=== PATIENT | female | born 1980 | race Caucasian/White ===

== ENCOUNTER → 2016-08-22 | Outpatient (CLI) | payer OTHER ==
[~2016-08-22] MED LIST: IBUP-103 PO; LEVO25TA5 PO; MTR600X PO
[2016-08-22 15:51] LABS: URINE APPEARANCE CLEAR (CLEAR); URINE BILIRUBIN NEG (NEG); URINE COLOR YELLOW; URINE NITRITE NEG (NEG); URINE SPECIFIC GRAVITY 1.006 (1.000-1.030); UROBILINOGEN NEG (NEG)
[2016-08-22 15:55] LABS: MANUAL MICROSCOPIC REQUIRED? NO; REVIEW REQ? NO
== END | disposition home or self-care (01) ==
LOC: C.LABSPEC 12:57
PROVIDERS: ATTEND Obstetrics & Gynecology
DX: O09.00 Supervision of pregnancy with history of infertility, unspecified trimester (principal)

== ENCOUNTER → 2016-08-28 | Outpatient (CLI) | payer OTHER | END | disposition home or self-care (01) | LOC: C.LAB1850 15:40 | PROVIDERS: ATTEND Obstetrics & Gynecology | DX: O03.9 Complete or unspecified spontaneous abortion without complication (principal) ==

== ENCOUNTER → 2016-09-05 | Outpatient (CLI) | payer OTHER ==
[2016-09-05 13:19] LABS: BASO % 0.2 %; BASO ABS # 0.02 K/uL (0-0.2); COMPLETE YES; EOS % 0.9 %; HEMATOCRIT 36.5 % (37-47); IG% 0.2 %; LYMPH % 23.8 %; LYMPH ABS # 2.97 K/uL (1.2-3.4); MEAN CELL VOLUME 88.6 fL (80-100); MEAN CORPUSCULAR HGB CONC 36.2 g/dl (32-36); MEAN PLATELET VOLUME 10.1 fL (7.4-10.4); MONO % 5.4 %; NEUT % 69.5 %; PLATELET COUNT 301 K/uL (130-400); RED BLOOD COUNT 4.12 M/uL (4.2-5.4); WHITE BLOOD COUNT 12.48 K/uL (4.8-10.8)
== END | disposition home or self-care (01) ==
LOC: C.LAB1850 11:54
PROVIDERS: ATTEND Obstetrics & Gynecology
DX: O03.9 Complete or unspecified spontaneous abortion without complication (principal)

== ENCOUNTER → 2016-09-10 | Day surgery (SDC) | payer OTHER ==
--- NOTE | 2016-09-05 14:38 | HISTORY & PHYSICAL EXAMINATION ---
DATE OF ADMISSION: 09/10/2016 ADMITTING DIAGNOSIS: Missed . ADMISSION HISTORY OF PRESENT ILLNESS: The patient is a 35-year-old 3, para 0 at 9 weeks gestational age who is admitted for a suction D\T\E for missed AB. The patient was seen in the office on 28 August for a new OB visit. At that time, the ultrasound showed an intrauterine with marked bradycardia and minimal growth since previous ultrasound. Ultrasound was repeated a week later which showed an intrauterine with no cardiac activity consistent with a missed AB. Treatment options were discussed with the patient and she has opted for the D\T\E. PAST MEDICAL HISTORY: OBSTETRICAL: As above. EAP CLINICIAN: SIB x3. MEDICAL HISTORY: Abnormal Pap smears. SURGICAL: Tonsillectomy and wisdom teeth extraction. ALLERGIES: OXYCODONE. SOCIAL HISTORY: No smoking. FAMILY HISTORY: Noncontributory. REVIEW OF SYSTEMS: As per HPI. PHYSICAL EXAMINATION: GENERAL: Shows a pleasant female in no acute distress. VITAL SIGNS: Blood pressure 102/74, weight of 120 pounds. HEENT: Unremarkable. NECK: Supple. LUNGS: Clear. HEART: With a regular rhythm and rate. ABDOMEN: Soft, nontender. PELVIC: Shows normal external genitalia. The vaginal vault is pink and rugated. The cervical os is nulliparous and closed. There is no cervical dilatation. Bimanual examination shows an anterior mobile uterus of 6-8 weeks size. The adnexa show no palpable masses. RECTAL: Confirmatory. EXTREMITIES: Shows no deep calf tenderness. NEUROLOGIC: Grossly intact. IMPRESSION: A 35-year-old 3, para 0, 9 weeks gestational age with missed . PLAN: Risks, benefits and alternatives to the surgery have been discussed. While the benefits will be removal of the gestational tissue and possible chromosomal analysis, the risks are bleeding, infection, inadvertent perforation of the uterus or failure to removal of gestational tissue. We have also discussed the alternative of Cytotec induction which the patient declines. The permit has been signed and she wishes to proceed.
[2016-09-07 08:02] VITALS: Ht 160 cm; Wt 54.5 kg
[~2016-09-10] VITALS: Ht 160 cm; Wt 54.5 kg
[~2016-09-10] MED LIST changes: +ATROPINE SULFATE 0.1 MG/ML 5ML SYR IV PRN; +DEXAMETHASONE SOD INJ 4 MG/ML VIAL IV PRN; +DEXAMETHASONE SOD INJ 4 MG/ML VIAL ONE; +DOXYCYCLINE HYCLATE 100 MG CAP PO SCH; +EpHEDrine SULFATE INJ 50 MG/ML AMP IV PRN; +FENTANYL CITRATE INJ 50 MCG/1 ML 2 ML VIAL IV PRN; +FENTANYL CITRATE INJ 50 MCG/1 ML 2 ML VIAL ONE; -IBUP-103 PO; +IBUPROFEN 600 MG TAB PO PRN; +KETOROLAC TROMETHAMINE 30 MG/ML VIAL IV. PRN; +KETOROLAC TROMETHAMINE 30 MG/ML VIAL ONE; +LABETALOL HCL IV 5 MG/ML 20ML IV PRN; +LACTATED RINGER'S 1000ML 1,000 ML IV SCH; +LIDOCAINE HCL 2% 2 ML VIAL (20MG/ML) ONE; +METOCLOPRAMIDE HCL INJ 5 MG/ML 2 ML VIAL IV PRN; +MIDAZOLAM HCL 1 MG/ML 2ML VIAL ONE; +MoRPHine SULFATE 10 MG/ML CARP/VIAL IV PRN; +ONDANSETRON INJ 2 MG/ML 2 ML VIAL IV PRN; +ONDANSETRON INJ 2 MG/ML 2 ML VIAL ONE; +OXYTOCIN INJ 10 UNITS/ML VIAL ONE; +PHENYLEPHRINE 100MCG/ML 5ML SYR IV PRN; +PROPOFOL IV EMULSION 10 MG/ML 20 ML VIAL IV ONE; +SODIUM CHLORIDE 0.9% 1000ML 1,000 ML IV SCH
--- NOTE | 2016-09-10 08:01 | History & Physical Bridge - SC ---
H&P Re-Evaluation Bridge Note: I have examined the patient, reviewed the History & Physical and in the interval since the performance of the History & Physical I have noted the following changes of clinical significance: Patient states she is Rh (-) and has received Rhogam with previous losses. No formal documentation of blood type can be found in records. Will check Type&Screen. If pt is Rh (-), will receive rhogam in outpatient clinic after procedure.
--- NOTE | 2016-09-10 09:28 | [facility] Post Operative Brief Note ---
Immediate Operative Summary Operative Date Sep 10, 2016. Pre-Operative Diagnosis Missed Post-Operative Diagnosis Same Procedure(s) Performed Dilatation And Evacuation Surgeon Dr. Kebede Senior Market Research Analyst Surgeon(s) None Estimated Blood Loss Minimal Findings Posterior uterus 8-10 week size, POC removed, tissue sent for Pathology and genetic testing Specimens A. Uterine Contents Drains None Anesthesia General Complication(s) None Disposition Recovery Room / PACU
--- NOTE | 2016-09-10 09:32 | Discharge Instructions-SurgCtr ---
Discharge Instructions Visit Reason for Visit: Inevitable Discharge Discharge Diagnosis / Problem: same Discharge Goals Goal(s): Therapeutic intervention Activity Recommendations Activity Limitations: as noted below Anesthesia . Post Anesthesia Instructions: If you have had General Anesthesia or IV Sedation: * Do not drive today. * Resume driving when surgeon permits. * Do not make important decisions or sign legal documents today. * Call surgeon for: 1. Temperature elevations greater than 101 degrees F. 2. Uncontrollable pain. 3. Excessive bleeding. 4. Persistent nausea and vomiting. 5. Medication intolerance (nausea, vomiting or rash). * For nausea and vomiting use only clear liquids such as: tea, soda, bouillon until nausea subsides, then gradually increase diet as tolerated. * If you have any concerns or questions, call your surgeon's office. If physician is unavailable and it is an emergency, call 911 or go to the nearest emergency room. . Instructions / Follow-Up Instructions / Follow-Up ACTIVITY RECOMMENDATIONS: * Avoid tampons, douching, hot tubs, pools, and intercourse until bleeding has stopped. * May shower as usual. * No strenuous activity for 24-48 hours. After 24-48 hours, you may do anything you feel like doing (driving and sports are okay). SPECIAL CARE INSTRUCTIONS: Special Diet: * Mild nausea may occur in the immediate post-operative period. * Take clear liquids such as tea, cola or bouillon until all nausea has subsided; you may then resume your normal diet. Special Care: * Light bleeding and vaginal spotting can last from a few days to 3-4 weeks. Call your doctor if bleeding becomes heavier than the heaviest part of your period. * Check your temperature twice a day for one week. If it goes above 100.4 degrees Fahrenheit (38.0 Celsius), notify your doctor. * Call your doctor's office for an appointment for 6 weeks after your surgery. FOLLOW-UP VISIT: Call your doctor's office for an appointment for 6 weeks after your surgery. Diet Recommendations Home Diet: resume previous diet Procedures Procedures Performed: Dilatation And Evacuation Pending Studies Studies pending at discharge: yes List of pending studies: 1) Pathology report 2) Genetic testing Medical Emergencies . Who to Call and When: Medical Emergencies: If at any time you feel your situation is an emergency, please call 911 immediately. . Non-Emergent Contact . . "Provider Documentation" section prepared by Edenilson Kebede.
--- NOTE | 2016-09-10 10:13 | Anesthesia Progress Nt - [facility] ---
Anesthesia Post Op Note Date & Time Sep 10, 2016 at 10:13 Vital Signs Pain Intensity: 2 Vital Signs Past 12 Hours Date Time Temp Pulse Resp B/P Pulse Ox O2 Delivery O2 Flow Rate FiO2 09/10/16 09:33 37 68 16 98/51 99 Mask 6 09/10/16 06:58 36.8 67 16 97/67 99 Room Air Notes Mental Status: alert / awake / arousable, participated in evaluation Pt Amnestic to Procedure: Yes Nausea / Vomiting: adequately controlled Pain: adequately controlled Airway Patency, RR, SpO2: stable & adequate BP & HR: stable & adequate Hydration State: stable & adequate Anesthetic Complications: no major complications apparent
[2016-09-10 10:39] VITALS: TEMP 36.5
[2016-09-10 11:02] VITALS: BP 99/62; PULSE 58; O2SAT 98
--- NOTE | 2016-09-10 12:42 | OPERATIVE REPORT ---
DATE OF OPERATION: 09/10/2016 PREOPERATIVE DIAGNOSIS: Missed . POSTOPERATIVE DIAGNOSIS: Same. PROCEDURE PERFORMED: Suction D\T\E. SURGEON: Dr. Kebede. ANESTHESIA: General. FINDINGS: Exam under anesthesia revealed an 8 to 10 week size posterior uterus. Products of conception removed, half for pathology, half for genetic testing. Post-procedure examination showed a small firm posterior uterus. PROCEDURE IN DETAIL: The patient was taken to the operating room and after general anesthesia was placed in dorsal lithotomy position, draped and prepped in usual fashion. The bladder was drained of any residual urine. Single tooth tenaculum was used to grasp the anterior lip of the cervix. The cervical os was dilated with Gonsalez dilators to a Gonsalez #30 and a #10 suction curette was introduced into the uterine cavity. Products of conception were removed on 2 passes of the curette. Curettage was then performed removing any remaining tissue. A repeat examination showed a small firm anterior uterus. Tenaculum removed from the cervix. Hemostasis achieved. The patient taken out of dorsal lithotomy and to recovery room in satisfactory condition. I attest to the content of the Intraoperative Record and any orders documented therein. Any exceptio ns are noted below.
== END | disposition home or self-care (01) ==
LOC: X.SURG 06:39
PROVIDERS: ATTEND Obstetrics & Gynecology
DX: O02.1 Missed abortion (principal); Z3A.09 9 weeks gestation of pregnancy; E07.9 Disorder of thyroid, unspecified

== ENCOUNTER → 2017-01-22 | Outpatient (CLI) | payer OTHER ==
[~2017-01-22] MED LIST changes: -ATROPINE SULFATE 0.1 MG/ML 5ML SYR IV PRN; -DEXAMETHASONE SOD INJ 4 MG/ML VIAL IV PRN; -DEXAMETHASONE SOD INJ 4 MG/ML VIAL ONE; -DOXYCYCLINE HYCLATE 100 MG CAP PO SCH; -EpHEDrine SULFATE INJ 50 MG/ML AMP IV PRN; -FENTANYL CITRATE INJ 50 MCG/1 ML 2 ML VIAL IV PRN; -FENTANYL CITRATE INJ 50 MCG/1 ML 2 ML VIAL ONE; -IBUPROFEN 600 MG TAB PO PRN; -KETOROLAC TROMETHAMINE 30 MG/ML VIAL IV. PRN; -KETOROLAC TROMETHAMINE 30 MG/ML VIAL ONE; -LABETALOL HCL IV 5 MG/ML 20ML IV PRN; -LACTATED RINGER'S 1000ML 1,000 ML IV SCH; -LIDOCAINE HCL 2% 2 ML VIAL (20MG/ML) ONE; -METOCLOPRAMIDE HCL INJ 5 MG/ML 2 ML VIAL IV PRN; -MIDAZOLAM HCL 1 MG/ML 2ML VIAL ONE; -MoRPHine SULFATE 10 MG/ML CARP/VIAL IV PRN; -ONDANSETRON INJ 2 MG/ML 2 ML VIAL IV PRN; -ONDANSETRON INJ 2 MG/ML 2 ML VIAL ONE; -OXYTOCIN INJ 10 UNITS/ML VIAL ONE; -PHENYLEPHRINE 100MCG/ML 5ML SYR IV PRN; -PROPOFOL IV EMULSION 10 MG/ML 20 ML VIAL IV ONE; -SODIUM CHLORIDE 0.9% 1000ML 1,000 ML IV SCH
[2017-01-22 15:42] LABS: HEMATOCRIT 38.4 % (37-47); MEAN CELL VOLUME 90.1 fL (80-100); MEAN CORPUSCULAR HGB CONC 34.4 g/dl (32-36); RED BLOOD COUNT 4.26 M/uL (4.2-5.4); WHITE BLOOD COUNT 7.98 K/uL (4.8-10.8)
[2017-01-22 15:43] LABS: BASO % 0.4 %; BASO ABS # 0.03 K/uL (0-0.2); COMPLETE YES; EOS % 1.6 %; IG% 0.1 %; LYMPH % 35.5 %; LYMPH ABS # 2.83 K/uL (1.2-3.4); MEAN PLATELET VOLUME 10.1 fL (7.4-10.4); MONO % 6.6 %; NEUT % 55.8 %; PLATELET COUNT 235 K/uL (130-400)
== END | disposition home or self-care (01) ==
LOC: C.LAB1850 14:17
PROVIDERS: ATTEND Obstetrics & Gynecology
DX: Z01.818 Encounter for other preprocedural examination (principal)

== ENCOUNTER 2017-01-23 09:53 | Day surgery (SDC) | payer OTHER ==
[2017-01-22 15:55] VITALS: BMI 21.0
[~2017-01-23] VITALS: Ht 160 cm; Wt 54.5 kg
[~2017-01-23 09:53] MED LIST changes: +DOXYCYCLINE HYCLATE 100 MG CAP PO SCH; +LACTATED RINGER'S 1000ML 1,000 ML IV SCH
[2017-01-23 10:26] VITALS: BP 104/66; PULSE 64; TEMP 36.8; O2SAT 100; Ht 160 cm; Wt 54.5 kg
[2017-01-23] MEDS ORDERED: MIDAZOLAM HCL 1 MG/ML 2ML VIAL ONE (10:51)
[2017-01-23] MEDS ORDERED: LIDOCAINE HCL 2% 2 ML VIAL (20MG/ML) ONE (10:51)
[2017-01-23] MEDS ORDERED: DEXAMETHASONE SOD INJ 4 MG/ML VIAL ONE (10:51)
[2017-01-23] MEDS ORDERED: ONDANSETRON INJ 2 MG/ML 2 ML VIAL ONE (10:51)
[2017-01-23] MEDS ORDERED: PROPOFOL IV EMULSION 10 MG/ML 20 ML VIAL IV ONE (10:51)
[2017-01-23] MEDS ORDERED: FENTANYL CITRATE INJ 50 MCG/1 ML 2 ML VIAL ONE (10:52)
--- NOTE | 2017-01-23 11:29 | History & Physical Bridge Note ---
H&P Re-Evaluation Bridge Note: I have examined the patient, reviewed the History & Physical and in the interval since the performance of the History & Physical I have noted the following changes of clinical significance: No changes noted
[2017-01-23] MEDS ORDERED: OXYTOCIN INJ 10 UNITS/ML VIAL ONE (12:09)
[2017-01-23] MEDS ORDERED: METOCLOPRAMIDE HCL INJ 5 MG/ML 2 ML VIAL ONE (12:09)
[2017-01-23] MEDS ORDERED: SODIUM CHLORIDE 0.9% 1000ML 1,000 ML IV SCH (12:13)
[2017-01-23] MEDS ORDERED: PROMETHAZINE HCL INJ 25 MG in SODIUM CHLORIDE 0.9% 50ML 50 ML IV PRN (12:15)
[2017-01-23] MEDS ORDERED: ONDANSETRON INJ 2 MG/ML 2 ML VIAL IV PRN ×2 (12:15→12:45)
[2017-01-23] MEDS ORDERED: KETOROLAC TROMETHAMINE 30 MG/ML VIAL IV. PRN (12:15)
[2017-01-23] MEDS ORDERED: KETOROLAC TROMETHAMINE 30 MG/ML VIAL ONE (12:15)
[2017-01-23] MEDS ORDERED: IBUPROFEN 600 MG TAB PO PRN (12:15)
--- NOTE | 2017-01-23 12:15 | [facility] Post Operative Brief Note ---
Immediate Operative Summary Operative Date Jan 23, 2017. Pre-Operative Diagnosis MAB Post-Operative Diagnosis MAB Procedure(s) Performed D+E Surgeon Kailey Lead Carpenter Surgeon(s) . Estimated Blood Loss 100ml Findings POC Specimens POC Drains None Anesthesia General Complication(s) None Disposition Recovery Room / PACU
[2017-01-23] MEDS ORDERED: MTR600X PO ×2 (12:16)
--- NOTE | 2017-01-23 12:16 | Discharge Instructions ---
Discharge Instructions Date of Service Jan 23, 2017. Admission Reason for Admission: Missed Discharge Discharge Diagnosis / Problem: MAB Discharge Goals Goal(s): Routine recovery after surgery Activity Recommendations Activity Limitations: per Instructions/Follow-up section . Instructions / Follow-Up Instructions / Follow-Up ACTIVITY RECOMMENDATIONS: * Avoid tampons, douching, hot tubs, pools, and intercourse until bleeding has stopped. * May shower as usual. * No strenuous activity for 24-48 hours. After 24-48 hours, you may do anything you feel like doing (driving and sports are okay). SPECIAL CARE INSTRUCTIONS: Special Diet: * Mild nausea may occur in the immediate post-operative period. * Take clear liquids such as tea, cola or bouillon until all nausea has subsided; you may then resume your normal diet. Special Care: * Light bleeding and vaginal spotting can last from a few days to 3-4 weeks. Call your doctor if bleeding becomes heavier than the heaviest part of your period. * Check your temperature twice a day for one week. If it goes above 100.4 degrees Fahrenheit (38.0 Celsius), notify your doctor. * Call your doctor's office for an appointment for 6 weeks after your surgery. FOLLOW-UP VISIT: Call your doctor's office for an appointment for 6 weeks after your surgery. Current Hospital Diet Patient's current hospital diet: Discharge Diet Recommended Diet: Regular Diet Procedures Procedures Performed: D+E Pending Studies Studies pending at discharge: no Medical Emergencies . Who to Call and When: Medical Emergencies: If at any time you feel your situation is an emergency, please call 911 immediately. . Non-Emergent Contact Non-Emergency issues call your: Telecommunications Equipment Installer . . "Provider Documentation" section prepared by Jayden Bonner. . VTE Core Measure Inpt VTE Proph given/why not?: Sarahy Machado, SCD's
--- NOTE | 2017-01-23 12:38 | OPERATIVE REPORT ---
DATE OF OPERATION: 01/23/2017 PREOPERATIVE DIAGNOSIS: Missed . POSTOPERATIVE DIAGNOSIS: Missed . PROCEDURE: D&E with suction. SURGEON: Dr. Bonner. ANESTHETIC: General. COMPLICATIONS: None. ESTIMATED BLOOD LOSS: 100 mL. SPECIMENS: Products of conception. FINDINGS: Six week size retroverted uterus. DISPOSITION: Recovery room. OPERATION AND FINDINGS: PROCEDURE: Carla was given a general anesthetic, prepped and draped in dorsal lithotomy position. Bladder drained. Uterus examined and found to be retroverted approximately 6 weeks' size. Weighted speculum placed in the vagina. Single tooth tenaculum anterior vagina. Cervix was then carefully and methodically dilated starting with a #13 dilator then working progressively to a 31 dilator. A 10 mm curved suction curette was then placed in the uterus and suction applied, was able to remove what appeared to be consistent with products of conception. After thorough suctioning, I was able to do a very brief scraping with sharp curettage and I could find no more retained products. One last pass of the suction and again no more products were obtained. IV Pitocin started by anesthesia. Instruments removed from the cervix and vagina. Sponge and instrument counts correct. I attest to the content of the Intraoperative Record and any orders documented therein. Any exception s are noted below.
[2017-01-23] MEDS ORDERED: FENTANYL CITRATE INJ 50 MCG/1 ML 2 ML VIAL IV PRN (12:45)
[2017-01-23] MEDS ORDERED: ATROPINE SULFATE 0.1 MG/ML 5ML SYR IV PRN (12:45)
[2017-01-23] MEDS ORDERED: PROMETHAZINE HCL INJ 12.5 MG in SODIUM CHLORIDE 0.9% 50ML 50 ML IV PRN (12:45)
[2017-01-23] MEDS ORDERED: NALOXONE HCL 0.4 MG/1 ML VIAL/CARP IV PRN (12:45)
[2017-01-23] MEDS ORDERED: FLUMAZENIL 0.1 MG/1 ML 10 ML VIAL IV PRN (12:45)
[2017-01-23] MEDS ORDERED: EpHEDrine SULFATE INJ 50 MG/ML AMP IV PRN (12:45)
[2017-01-23] MEDS ORDERED: DOXYCYCLINE HYCLATE 100 MG CAP PO ONE (13:00)
--- NOTE | 2017-01-23 13:09 | Anesthesiology Progress Note ---
Anesthesia Post Op Note Date & Time Jan 23, 2017 at 13:09 Vital Signs Pain Intensity: 0 Vital Signs Past 12 Hours Date Time Temp Pulse Resp B/P (MAP) Pulse Ox O2 Delivery O2 Flow Rate FiO2 01/23/17 12:59 60 20 01/23/17 12:59 60 20 99 01/23/17 12:57 96/58 01/23/17 12:54 59 18 99 01/23/17 12:54 58 18 01/23/17 12:52 99/60 01/23/17 12:50 36.6 57 19 96/58 100 Room Air 10 01/23/17 12:49 59 23 01/23/17 12:49 61 23 99 01/23/17 12:47 99/61 01/23/17 12:44 70 19 01/23/17 12:44 68 19 100 01/23/17 12:42 94/60 01/23/17 12:39 58 29 01/23/17 12:39 59 29 100 01/23/17 12:38 59 17 01/23/17 12:38 60 17 100 01/23/17 12:37 99/53 01/23/17 12:36 60 17 01/23/17 12:36 59 17 100 01/23/17 12:32 104/56 01/23/17 12:31 70 15 100 01/23/17 12:31 70 15 01/23/17 12:28 106/57 01/23/17 12:26 36.5 75 16 106/57 100 Mask 10 01/23/17 10:26 36.8 64 16 104/66 (79) 100 Room Air Notes Mental Status: alert / awake / arousable, participated in evaluation Pt Amnestic to Procedure: Yes Nausea / Vomiting: adequately controlled Pain: adequately controlled Airway Patency, RR, SpO2: stable & adequate BP & HR: stable & adequate Hydration State: stable & adequate Anesthetic Complications: no major complications apparent
[2017-01-23 14:00] VITALS: BP 102/51; PULSE 61; TEMP 36.6; O2SAT 99
== END 2017-01-23 14:00 | disposition home or self-care (01) ==
LOC: C.ACU 09:53
PROVIDERS: ATTEND Obstetrics & Gynecology
DX: O02.1 Missed abortion (principal); Z3A.01 Less than 8 weeks gestation of pregnancy; E03.9 Hypothyroidism, unspecified; Z79.899 Other long term (current) drug therapy

== ENCOUNTER → 2017-03-19 | Outpatient (CLI) | payer OTHER ==
[~2017-03-19] MED LIST changes: -DOXYCYCLINE HYCLATE 100 MG CAP PO SCH; -LACTATED RINGER'S 1000ML 1,000 ML IV SCH
== END | disposition home or self-care (01) ==
LOC: C.LAB1850 10:08
PROVIDERS: ATTEND Specialist
DX: Z31.41 Encounter for fertility testing (principal)

== ENCOUNTER → 2017-07-04 | Outpatient (CLI) | payer OTHER ==
[2017-07-04 12:05] LABS: URINE APPEARANCE CLEAR (CLEAR); URINE BILIRUBIN NEG (NEG); URINE COLOR DK YELLOW; URINE EPITHELIAL CELL AUTO >30 /lpf (0-5); URINE NITRITE NEG (NEG); URINE PH 5.5 (4.5-7.5); URINE SPECIFIC GRAVITY 1.025 (1.000-1.030); UROBILINOGEN NEG (NEG)
[2017-07-04 12:07] LABS: MANUAL MICROSCOPIC REQUIRED? NO; REVIEW REQ? YES
[2017-07-04 12:10] LABS: BASO % 0.2 %; BASO ABS # 0.03 K/uL (0-0.2); COMPLETE YES; EOS % 2.2 %; HEMATOCRIT 43.3 % (37-47); IG% 0.3 %; LYMPH ABS # 3.04 K/uL (1.2-3.4); MEAN CELL VOLUME 93.1 fL (80-100); MEAN CORPUSCULAR HEMOGLOBIN 32.7 pg (25-34); MEAN CORPUSCULAR HGB CONC 35.1 g/dl (32-36); MEAN PLATELET VOLUME 10.6 fL (7.4-10.4); MONO % 4.8 %; NEUT % 70.5 %; PLATELET COUNT 285 K/uL (130-400); RED BLOOD COUNT 4.65 M/uL (4.2-5.4); WHITE BLOOD COUNT 13.79 K/uL (4.8-10.8)
== END | disposition home or self-care (01) ==
LOC: C.LAB1850 10:39
PROVIDERS: ATTEND Obstetrics & Gynecology
DX: O09.01 Supervision of pregnancy with history of infertility, first trimester (principal); Z3A.00 Weeks of gestation of pregnancy not specified

== ENCOUNTER → 2017-08-01 | Outpatient (CLI) | payer OTHER ==
[2017-08-05 06:52] LABS: CHLAMYDIA TRACH RNA*** NOT DETECTED (NOT DETECTED); GC (NEIS GONORRHOEAE)RNA** NOT DETECTED (NOT DETECTED)
== END | disposition home or self-care (01) ==
LOC: C.LABSPEC 10:55
PROVIDERS: ATTEND Obstetrics & Gynecology
DX: O09.01 Supervision of pregnancy with history of infertility, first trimester (principal)

== ENCOUNTER → 2017-08-29 | Outpatient (CLI) | payer OTHER | END | disposition home or self-care (01) | LOC: C.LAB1850 09:46 | PROVIDERS: ATTEND Obstetrics & Gynecology | DX: O09.812 Supervision of pregnancy resulting from assisted reproductive technology, second trimester (principal); O99.282 Endocrine, nutritional and metabolic diseases complicating pregnancy, second trimester; E03.9 Hypothyroidism, unspecified; Z3A.00 Weeks of gestation of pregnancy not specified ==

== ENCOUNTER → 2017-10-09 | Outpatient (CLI) | payer OTHER | END | disposition home or self-care (01) | LOC: C.LAB1850 16:43 | PROVIDERS: ATTEND Obstetrics & Gynecology | DX: E03.9 Hypothyroidism, unspecified (principal) ==

== ENCOUNTER → 2017-11-08 | Outpatient (CLI) | payer OTHER ==
[2017-11-08 12:21] LABS: HEMATOCRIT 37.7 % (37-47)
== END | disposition home or self-care (01) ==
LOC: C.LAB1850 09:32
PROVIDERS: ATTEND Obstetrics & Gynecology
DX: O09.513 Supervision of elderly primigravida, third trimester (principal)

== ENCOUNTER → 2017-11-22 | Outpatient (CLI) | payer OTHER | END | disposition home or self-care (01) | LOC: C.LAB1850 08:57 | PROVIDERS: ATTEND Obstetrics & Gynecology | DX: E03.9 Hypothyroidism, unspecified (principal) ==

== ENCOUNTER → 2017-12-17 | Outpatient (CLI) | payer OTHER | END | disposition home or self-care (01) | LOC: C.LAB1850 08:53 | PROVIDERS: ATTEND Obstetrics & Gynecology | DX: E03.9 Hypothyroidism, unspecified (principal) ==

== ENCOUNTER 2021-08-25 05:26 | Inpatient (IN) ==
--- NOTE | 2021-08-23 09:03 | Anesthesiology Consultation ---
Date of Service August 23, 2021 Assessment & Plan (1) Encounter for pre-operative examination: - COVID screening: Per de icer on 08/23/2021: Travel screen negative, no known COVID-19 positive contacts or current COVID-19 related symptoms in past 2 weeks. Surgeon arranging preop COVID testing, scheduled 08/23/2021. Awaiting results. Chart Review Chart Review: data entry assistant initiated History Surgery Operation Date: 08/25/21 07:30 Proposed Procedures p Section in LD (Delivery of Baby Through Abdominal Incision) - Marlen Bonner MD, FACOG Height/Weight Height: 5 ft 2 in Weight: 68.039 kg Allergies Allergy/AdvReac Type Severity Reaction Status Date / Time No Known Allergies Allergy Verified 08/24/21 08:27 Medications Home Medications Medication Instructions Recorded Confirmed Last Taken prenat.vits,negro,[id number] 1 tab PO DAILY 01/13/21 08/25/21 08/24/21 09:00 Active Medications Generic Name Dose Route Start Last Admin Trade Name Freq PRN Reason Stop Dose Admin Citric Acid/Sodium Citrate 30 ml 08/25/21 06:00 08/25/21 07:09 Citric Acid/Sodium Citrate 15 Ml Udc PO 08/25/21 14:00 30 ml PREOP TATE Administration Lactated Ringer's 1,000 mls @ 125 mls/hr 08/25/21 06:45 08/25/21 07:09 Lr IV 09/24/21 06:44 125 mls/hr .Q8H TATE Administration Past Medical History Medical History , missed History of COVID-07 JULY 2020>LOSS OF TASTE/SMELL History of miscarriage X 6 Past Family History Family History Father Hemochromatosis Thyroid disease Sister Thyroid disease Grandfather Myocardial infarction Colorectal cancer Grandmother Colorectal cancer Other No family history of adverse response to anesthesia Denies family history of Ovarian cancer Prostate cancer Breast cancer Past Surgical History Surgical History History of anesthesia reaction REMEMBERS HAVING ITCHING AFTER LAST History of breast augmentation History of section X 1 01/25/2018: SAB at L3, 1 attempt. No issues per anesthesia postop progress note. 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
--- NOTE | 2021-08-24 14:40 | History & Physical Report ---
Date of Service August 24, 2021 Assessment & Plan (1) Previous delivery affecting , antepartum: Plan: Repeat section. The patient was counseled to the nature of the procedure including alternatives such as labor. Risks were discussed including bleeding infection injury to bowel bladder ureter vessels and even baby. The risks of internal organ injury were discussed as being higher with prior sections. Deep Vein Thrombosis, pulmonary embolus and breakdown of the incision discussed. Deep vein thrombosis pulmonary embolus hernia and failure of the incision to heal were discussed Patient verbalized understanding of this and was given ample time to ask questions 39+1 on date of C/S with LMP and cwd U/S History of Present Illness Primary Care Provider: Mike Hickman MD Allergies Allergy/AdvReac Type Severity Reaction Status Date / Time No Known Allergies Allergy Verified 08/24/21 08:27 Home Medications Medication Instructions Recorded Confirmed Type prenat.vits,negro,iuw-[id number] 1 tab PO DAILY 01/13/21 08/24/21 History Patient History Medical History (Updated 08/23/21 @ 09:06 by Brenda Marin PA-C) , missed History of COVID-07 JULY 2020>LOSS OF TASTE/SMELL History of miscarriage X 6 Surgical History (Updated 08/23/21 @ 09:05 by Brenda Marin PA-C) History of anesthesia reaction REMEMBERS HAVING ITCHING AFTER LAST History of breast augmentation History of section X 1 01/25/2018: SAB at L3, 1 attempt. No issues per anesthesia postop progress no te. 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) History of tonsillectomy History of tooth extraction S/P myringotomy with insertion of tube Family History Father Hemochromatosis Thyroid disease Sister Thyroid disease Grandfather Myocardial infarction Colorectal cancer Grandmother Colorectal cancer Other No family history of adverse response to anesthesia Denies family history of Ovarian cancer Prostate cancer Breast cancer Social History Smoking Status: Never smoker Second Hand Exposure: No; Hx Alcohol Use: No Preferred Language: [place] Utility Aircrewman Required: No Beliefs That Will Affect Care: None marital status: marital status details: Antwan Nicholas (48) [phone] Current Living Situation: Family Current Living Situation Comment: lives with spouse, daughter, dog current occupational status: employed current occupation: Speech therapist Ward Care Feels Safe at Home: Yes Dental Care, Regularly: Yes Physical Activity Frequency: 3-4 Times per Week Assistive Devices: None Review of Systems as per Subjective / HPI Physical Exam Constitutional: WD/WN, vitals as above well developed and well nourished Respiratory: normal respiratory effort, lungs clear to auscultation normal respiratory effort Cardiovascular: RRR, no murmur, no edema Gastrointestinal (Abdomen): normal bowel sounds, soft, nontender, no hepatosplenomegaly Coding Level of Care Code None Diagnoses Previous delivery affecting , antepartum O34.219
[2021-08-25] MEDS ORDERED: LACTATED RINGER'S 1,000 ML IV SCH ×3 (06:00→08:58)
[2021-08-25] MEDS ORDERED: CITRIC ACID/SODIUM CITRATE 15 ML UDC PO SCH (06:00)
[2021-08-25] MEDS ORDERED: ceFAZolin 2,000 MG in SYRINGE 0 ML IV SCH (06:00)
--- NOTE | 2021-08-25 06:44 | History & Physical Bridge Note ---
Date of Service August 25, 2021 History & Physical Bridge Note I have examined the patient, reviewed the History & Physical and in the interval since the performance of the History & Physical I have noted the following changes of clinical significance: no changes noted
[2021-08-25 06:59] LABS: Hematocrit (blood only) 32.8 % (37-47); Hemoglobin 10.7 g/dL (12.0-16.0); Mean Corpuscular Hemoglobin 30.9 pg (25-34); Mean Corpuscular Volume 94.8 fL (80-100); Mean Platelet Volume 10.8 fL (7.4-10.4); Platelet Count 148 K/uL (130-400); RDW Coefficient of Variation 12.8 % (11.5-14.5); RDW Standard Deviation 44.2 fL (36.4-46.3); Red Blood Count 3.46 M/uL (4.2-5.4); White Blood Count 9.88 K/uL (4.8-10.8)
[2021-08-25] MEDS ORDERED: OXYTOCIN 10 UNITS/ML 10ML VIAL ONE (06:59)
[2021-08-25 07:05] LABS: Mean Corpuscular Hgb Conc 32.6 g/dL (32-36)
[2021-08-25 07:16] LABS: Basophils # (auto) 0.02 K/uL (0-0.2); Basophils % (auto) 0.2 %; Eosinophils # (auto) 0.11 K/uL (0-0.5); Eosinophils % (auto) 1.1 %; Immature Granulocytes # (auto) 0.04 K/uL (0.00-0.02); Immature Granulocytes % (auto) 0.4 %; Lymphocytes # (auto) 2.45 K/uL (1.2-3.4); Lymphocytes % (auto) 24.8 %; Monocytes # (auto) 0.55 K/uL (0.11-0.59); Monocytes % (auto) 5.6 %; Neutrophils # (auto) 6.71 K/uL (1.4-6.5); Neutrophils % (auto) 67.9 %
[2021-08-25] MEDS ORDERED: ONDANSETRON INJ 2 MG/ML 2 ML VIAL ONE (07:26)
[2021-08-25] MEDS ORDERED: MoRPHine SULFATE PF 1 MG/ML 10 ML AMP/VIAL ONE (07:26)
[2021-08-25] MEDS ORDERED: PHENYLEPHRINE 100MCG/ML 5ML SYR ONE ×2 (07:47→08:24)
[2021-08-25] MEDS ORDERED: KETOROLAC 30 MG/ML VIAL ONE (08:33)
--- NOTE | 2021-08-25 08:54 | Operative Report ---
[facility] Post Operative Report Pre & Post Diagnosis Operation Date: 08/25/21 07:30 <No data on this case meets the specified criteria> I identified the patient and participated in the time-out.: Yes Procedure Operation Date: 08/25/21 07:30 <No data on this case meets the specified criteria> Surgeon Marlen Bonner MD, FACOG Hand Tile Maker Dr. Andrade Estimated Blood Loss 50 Findings Consistent with Post-Op Diagnosis Specimens cord gases and blood Description of Procedure Regional anesthetic was given by anesthesia patient had a Solano catheter inserted by nursing patient was prepped and draped in supine position with a leftward tilt preoperative antibiotics were given timeout performed Pickups with teeth were used to test the skin site and it was found adequate for incision scalpel used to make a Pfannenstiel incision cutting down through subcutaneous fat through the fascia fascia was then dissected laterally with the curved Mora's fascia was released superiorly and inferiorly from the rectus muscles with the curved Mora scissors, rectus muscle split peritoneal cavity entered in a superior location. Opening enlarged to allow exposure bladder retractor placed Metzenbaums used to dissect away the bladder flap low segment transverse incision made on the uterus with scalpel entry was done bluntly with the clamp carrier operator's finger hysterotomy incision extended with the clamp carrier operator's finger in the usual fashion baby was delivered then by flexion of the head and pressure from the assistant manager bilingual on the abdomen mouth and then nares were suctioned baby was then delivered fully without difficulty without excessive force live vigorous infant cord clamped and cut cord gases obtained cord blood obtained placenta removed manually within ensured all placenta removed with a moist lap sponge uterus exteriorized IV Pitocin had been started by anesthesia and uterine tone improved. The uterus was closed in 2 layers first layer and 0 Monocryl running locked second layer 0 Monocryl nonlocked after generous irrigation and suction of the cul-de-sac and bladder flap regions hemostasis was excellent uterus was placed back in the peritoneal cavity and hemostasis was excellent rectus muscles were inspected and found to be dry fascia closed with 0 Vicryl subcutaneous fat closed with 3-0 Vicryl prior to this subcutaneous fat was irrigated skin closed with 4-0 subcuticular Monocryl incision Steri-Stripped urine was clear at the end of the procedure Both adnexa and uterus were normal I attest to the content of the Intraoperative Record and any orders documented therein. Any exceptions are noted below. OB Procedure Charges 29334
[2021-08-25] MEDS ORDERED: MoRPHine SULFATE 2 MG/ML CARP IV PRN (08:58)
[2021-08-25] MEDS ORDERED: HYDROmorphone INJ 0.5 MG/0.5 ML SYR IV PRN (08:58)
[2021-08-25] MEDS ORDERED: NALOXONE HCL 0.08 MG in SYRINGE 1.8 ML IV PRN (08:58)
[2021-08-25] MEDS ORDERED: SUPERCREAM 0.870% 15 GM JAR EXT PRN (08:58)
[2021-08-25] MEDS ORDERED: PROMETHAZINE HCL 6.25 MG in SODIUM CHLORIDE 0.9% 50 ML IV PRN (08:58)
[2021-08-25] MEDS ORDERED: diphenhydrAMINE 50 MG/ML VIAL IV PRN (08:58)
[2021-08-25] MEDS ORDERED: MAGNESIUM HYDROXIDE SUSP 30 ML UDC PO PRN (08:58)
[2021-08-25] MEDS ORDERED: NALOXONE HCL 1 MG in SODIUM CHLORIDE 0.9% 1000ML 1,000 ML IV PRN (08:58)
[2021-08-25] MEDS ORDERED: DIPHTHERIA/TETANUS/PERTUSSIS 0.5 ML SYR/VIAL IM ONE (08:58)
[2021-08-25] MEDS ORDERED: LACTATED RINGER'S 500 ML IV PRN (08:58)
[2021-08-25] MEDS ORDERED: SENNA 8.6 MG TAB PO PRN (08:58)
[2021-08-25] MEDS ORDERED: KETOROLAC 30 MG/ML VIAL IV PRN (08:58)
[2021-08-25] MEDS ORDERED: ONDANSETRON INJ 2 MG/ML 2 ML VIAL IV PRN (08:58)
[2021-08-25] MEDS ORDERED: MEPERIDINE HCL 25 MG/ML CARP/VIAL IV PRN (08:58)
[2021-08-25] MEDS ORDERED: BENZOCAINE 20% AER SPR 82.5 GM CAN EXT PRN (08:58)
[2021-08-25] MEDS ORDERED: HYDROCORTISONE ACETATE 25 MG SUPP PR PRN (08:58)
[2021-08-25] MEDS ORDERED: NALOXONE HCL 0.4 MG/1 ML VIAL/CARP IV PRN (08:58)
[2021-08-25] MEDS ORDERED: MoRPHine SULFATE PF 1 MG/ML 10 ML AMP/VIAL INT SPINAL ONE (08:58)
[2021-08-25] MEDS ORDERED: ePHEDrine sulfate 50 MG/ML AMP IV PRN (08:58)
[2021-08-25] MEDS ORDERED: NO NARCOTICS OR SEDATIVES SCH (09:00)
[2021-08-25] MEDS ORDERED: SODIUM CHLORIDE 0.9% 1000ML 1,000 ML IV SCH (09:00)
[2021-08-25] MEDS ORDERED: NON-FORMULARY MEDICATION (Prenat.Vits,Cal,Min-Iron-Folic tablet) PO SCH (09:00)
[2021-08-25] MEDS ORDERED: diphenhydrAMINE 50 MG/ML VIAL ONE (09:08)
[2021-08-25 09:18] LABS: Base Excess Cord Arterial Bld -1.7 mEq/L (-9-1.8); CO2 Cord Arterial Blood 51 mmHg (39.1-73.5); HCO3 Cord Arterial Blood 25 mmol/L (19.7-28.5); PO2 Cord Arterial Blood 21 mmHg (4.1-31.7); pH Cord Arterial Blood 7.31 (7.1-7.38)
[2021-08-25 09:19] LABS: Oxygen Sat Cord Arterial Blood < 60.0 % (<60)
[2021-08-25 09:22] LABS: Base Excess Cord Venous Blood -2.3 mEq/L (-7.7-1.9); Cord Venous Blood HCO3 23 mmol/L (18.4-26.8); Cord Venous Blood PCO2 41 mmHg (30.4-57.2); Cord Venous Blood PO2 29 mmHg (14.1-43.3); Cord Venous Blood pH 7.36 (7.20-7.44)
[2021-08-25 09:24] LABS: O2 Saturation Cord Venous Bld < 60.0 % (<68)
[2021-08-25] MEDS: NALBUPHINE HCL INJ 10 MG/ML AMP IV PRN ×2 (11:06→19:41)
[2021-08-25] MEDS: OXYTOCIN 20 UNITS in LACTATED RINGER'S 1,000 ML IV SCH ×2 (11:15→19:34)
--- NOTE | 2021-08-25 11:32 | Anesthesiology Progress Note ---
Date of Service August 25, 2021 Anesthesia Post Procedure Vital Signs Vital Signs: Temp Pulse Resp BP Pulse Ox 08/25/21 10:46 65 99 08/25/21 10:44 65 97/64 L 08/25/21 10:41 66 100 08/25/21 10:36 70 99 08/25/21 10:34 68 93/60 L 08/25/21 10:31 65 100 08/25/21 10:26 63 99 08/25/21 10:24 63 101/65 08/25/21 10:21 64 99 08/25/21 10:16 65 100 08/25/21 10:14 62 96/62 L 08/25/21 10:11 63 97 08/25/21 10:06 64 99 08/25/21 10:04 63 103/66 08/25/21 10:01 64 98 08/25/21 09:56 63 98 08/25/21 09:54 63 100/59 L 08/25/21 09:51 63 98 08/25/21 09:46 65 100 08/25/21 09:44 64 100/61 08/25/21 09:41 64 100 08/25/21 09:36 63 100 08/25/21 09:34 61 98/63 L 08/25/21 09:32 18 08/25/21 09:31 63 99 08/25/21 09:26 64 99 08/25/21 09:24 59 L 98/61 L 08/25/21 09:22 18 08/25/21 09:21 62 99 08/25/21 09:16 71 97/54 L 95 08/25/21 09:12 16 08/25/21 09:11 62 96 08/25/21 09:06 67 97 08/25/21 09:05 63 98/51 L 08/25/21 09:02 18 08/25/21 09:01 64 97 08/25/21 08:57 65 100/57 L 08/25/21 08:56 65 96 08/25/21 08:52 18 08/25/21 08:51 64 96 08/25/21 08:46 66 97 08/25/21 08:42 36.5 C 63 20 93/54 L 08/25/21 05:52 96 H 106/70 08/25/21 05:42 37.1 C 18 Pain Intensity Bilateral Abdomen: Pain Intensity: 4 Transfer of Care Handoff Completed per policy Notes Mental Status: alert / awake / arousable Nausea / Vomiting: adequately controlled Pain: adequately controlled Airway Patency, RR, SpO2: stable & adequate BP & HR: stable & adequate Hydration State: stable & adequate Neuraxial Anesthesia: was administered and sensory block is resolving Anesthetic Complications: no major complications apparent and Pt Satisfied with anesthetic care
[2021-08-25] MEDS: SIMETHICONE 80 MG CHEW PO SCH ×2 (12:39→22:06)
[2021-08-25] MEDS: DOCUSATE SODIUM 100 MG CAP PO SCH (22:06)
[2021-08-26] MEDS: NALBUPHINE HCL INJ 10 MG/ML AMP IV PRN (00:42)
[2021-08-26] MEDS ORDERED: KETOROLAC 30 MG/ML VIAL IV PRN (02:58)
[2021-08-26] MEDS ORDERED: ONDANSETRON INJ 2 MG/ML 2 ML VIAL IV PRN (02:58)
[2021-08-26] MEDS ORDERED: MEPERIDINE HCL 50 MG/ML CARP IV PRN (02:58)
[2021-08-26] MEDS ORDERED: PROMETHAZINE HCL 25 MG in SODIUM CHLORIDE 0.9% 50 ML IV PRN (02:58)
[2021-08-26] MEDS ORDERED: diphenhydrAMINE 50 MG/ML VIAL IV PRN (02:58)
[2021-08-26] MEDS ORDERED: diphenhydrAMINE Capsule 25 MG CAP PO PRN (02:58)
[2021-08-26] MEDS ORDERED: DC INTRASPINAL MORPHINE ONE (02:58)
[2021-08-26] MEDS: oxyCODONE/ACETAMINOPHEN 5mg/325mg TAB PO PRN ×5 (03:03→21:25)
[2021-08-26] MEDS: IBUPROFEN 600 MG TAB PO PRN ×5 (03:04→21:25)
[2021-08-26 06:53] LABS: Basophils # (auto) 0.02 K/uL (0-0.2); Basophils % (auto) 0.2 %; Eosinophils # (auto) 0.09 K/uL (0-0.5); Eosinophils % (auto) 0.8 %; Hematocrit (blood only) 33.3 % (37-47); Hemoglobin 11.2 g/dL (12.0-16.0); Immature Granulocytes # (auto) 0.03 K/uL (0.00-0.02); Immature Granulocytes % (auto) 0.3 %; Lymphocytes # (auto) 1.78 K/uL (1.2-3.4); Lymphocytes % (auto) 16.1 %; Mean Corpuscular Hemoglobin 31.5 pg (25-34); Mean Corpuscular Hgb Conc 33.6 g/dL (32-36); Mean Corpuscular Volume 93.5 fL (80-100); Monocytes # (auto) 0.33 K/uL (0.11-0.59); Neutrophils # (auto) 8.84 K/uL (1.4-6.5); Neutrophils % (auto) 79.6 %; Platelet Count 164 K/uL (130-400); RDW Coefficient of Variation 12.7 % (11.5-14.5); RDW Standard Deviation 43.4 fL (36.4-46.3); Red Blood Count 3.56 M/uL (4.2-5.4); White Blood Count 11.09 K/uL (4.8-10.8)
--- NOTE | 2021-08-26 07:50 | Obstetrical Progress Note ---
Date of Service <Toshia Shay MD - Last Filed: 08/26/21 07:50> August 26, 2021 Assessment & Plan <Toshia Shay MD - Last Filed: 08/26/21 07:50> (1) Encounter for care and examination after delivery: POD 1: stable, routine postoperative management * patient voiding, ambulating without difficulty * pain well controlled on analgesia * tolerating regular diet * bottle feeding * reassess d/c readiness tomorrow <Corie Molina MD - Last Filed: 08/26/21 08:12> (1) Encounter for care and examination after delivery: Subjective <Toshia Shay MD - Last Filed: 08/26/21 07:50> Post Carla is a 40-year-old -0-6-2 who is POD 1 following a repeat at 39.1 WGA. She reports feeling well overall this morning. 0/10 pain well managed on analgesics. Voiding +. Tolerating meals overnight and able to ambulate without assistance. Patient reports feeling "puffy" and ear fullness/muffled hearing. She denies dizziness, vertigo, or nausea/vomiting with head movement. Some persistent lochia with some improvement this morning. Currently bottle feeding. Review of Systems Denies fever, chills, sweats Denies shortness of breath, difficulty breathing, chest pain, palpitations, chest pressure. Denies breast pain. Denies dysuria. Denies headache or changes in vision. Physical Exam <Toshia Shay MD - Last Filed: 08/26/21 07:50> General: Alert, oriented. No acute distress. Cardiac: Regular rate and rhythm, no murmurs/rubs/gallops. Respiratory: Clear to auscultation bilaterally a/p, no wheezes/rales/rhonchi. No increased work of breathing. Symmetrical chest rise. No respiratory distress. Abdomen: Soft, nontender, nondistended. Bowel sounds present. Uterus: Uterine fundus firm, palpable at the umbilicus. Surgical scar clean and healing well. Lower Extremities: No lower extremity edema or swelling. No deep calf pain. Brayan's negative bilaterally. Results & Data ([facility]) <Toshia Shay MD - Last Filed: 08/26/21 07:50> Vital Signs (Past 12 Hours) Vital Signs Temp Pulse Resp BP Pulse Ox 08/26/21 03:06 36.5 C 76 18 116/79 97 08/26/21 02:15 18 96 08/26/21 01:44 18 94 08/26/21 00:05 36.5 C 69 18 108/74 96 08/25/21 23:42 18 95 08/25/21 22:20 18 95 08/25/21 21:34 18 94 08/25/21 20:56 18 94 <Corie Molina MD - Last Filed: 08/26/21 08:12> Co-Signing Physician Notes Resident Physician Supervision Note: I interviewed and examined the patient. Discussed with Dr. Frankel and agree with findings and plan as documented in the note. Any exceptions or clarifications are listed here: [ ] Documented By: Corie Molina MD, FACOG Resident Activity Tracking <Toshia Shay MD - Last Filed: 08/26/21 07:50> Resident Involvement: Resident Care Provided Care Provided: OB Delivery
[2021-08-26] MEDS: DOCUSATE SODIUM 100 MG CAP PO SCH ×2 (08:02→21:25)
[2021-08-26] MEDS: PRENATAL VITAMIN 1 TAB PO SCH (08:02)
[2021-08-26] MEDS: FERROUS SULFATE 325 MG TAB PO SCH (08:02)
[2021-08-26] MEDS: SIMETHICONE 80 MG CHEW PO SCH ×5 (08:02→21:25)
[2021-08-26] MEDS ORDERED: bisacodyL 5 MG TABEC PO SCH (20:00)
[2021-08-27] MEDS: oxyCODONE/ACETAMINOPHEN 5mg/325mg TAB PO PRN ×3 (02:17→11:34)
[2021-08-27] MEDS: IBUPROFEN 600 MG TAB PO PRN ×3 (02:18→11:35)
[2021-08-27 07:54] LABS: Hemoglobin 10.8 g/dL (12.0-16.0)
[2021-08-27] MEDS ORDERED: SODIUM CHLORIDE 0.65% NA SOLN 45 ML (OCEAN) ONE (07:56)
--- NOTE | 2021-08-27 07:59 | Obstetrical Progress Note ---
Date of Service August 27, 2021 Assessment & Plan (1) Encounter for care and examination after delivery: 40 yo POD2 from [facility], doing well -Meeting all pp milestones. Has some ear congestion that she will take decongestant for, does not have concerning respiratory/infectoius s/s currently -A+/rubella immune/ -f/u 6 weeks for appt, stable for d/c home today Subjective Ambulation: ambulating normally Voiding: no voiding problems Passing Gas:: Yes Diet Tolerance:: regular diet Lochia:: Small Feeding Type:: breast feeding Pain well managed with medication. Has ear congestion but no other concerning respiratory symptoms. Review of Systems Denies fevers, chills, n/v, GRIGGS, CP, SOB Physical Exam Constitutional WD/WN, vitals as above no acute distress Respiratory normal respiratory effort, lungs clear to auscultation Cardiovascular RRR, no murmur, no edema Gastrointestinal (Abdomen) Inspection/Auscultation: abdomen normal to inspection and + abdominal surgical scar (c/d/i) Percussion/Palpation: abdomen soft; abdomen nontender fundus firm at umbilicus and NT Musculoskeletal BLE symmetric, nonerythematous, nontender Results & Data ([place]) Vital Signs (Past 12 Hours) Vital Signs Temp Pulse Resp BP Pulse Ox 08/26/21 23:30 98.1 F 69 18 113/74 99
[2021-08-27] MEDS: DOCUSATE SODIUM 100 MG CAP PO SCH (08:05)
[2021-08-27] MEDS: FERROUS SULFATE 325 MG TAB PO SCH (08:05)
[2021-08-27] MEDS: PRENATAL VITAMIN 1 TAB PO SCH (08:05)
[2021-08-27] MEDS: SIMETHICONE 80 MG CHEW PO SCH (08:05)
[2021-08-27] MEDS ORDERED: bisacodyL 10 MG SUPP PR PRN (08:27)
--- NOTE | 2021-08-30 07:46 | Discharge Summary ---
Date of Service August 30, 2021 Admission Exam (Per Admitting) Constitutional WD/WN, vitals as above well developed and well nourished Respiratory normal respiratory effort, lungs clear to auscultation normal respiratory effort Cardiovascular RRR, no murmur, no edema Gastrointestinal (Abdomen) normal bowel sounds, soft, nontender, no hepatosplenomegaly Discharge Data Consultations 08/25/21 05:33 Consult Anesthesiology Stat Procedures Performed Operation Date: 08/25/21 07:30 Actual Procedures p Section in LD (Delivery of Baby Through Abdominal Incision) with the of a live male child at 0757. (Bilateral) - Marlen Bonner MD, [facility] Course (1) Encounter for care and examination after delivery: 40 [facility], doing well -Meeting all pp milestones. Has some ear congestion that she will take decongestant for, does not have concerning respiratory/infectoius s/s currently -A+/rubella immune/ -f/u 6 weeks for appt, stable for d/c home today Coding Level of Care Code None Diagnoses Encounter for care and examination after delivery Z39.2
== END 2021-08-27 12:00 | disposition home or self-care (01) | DRG 788 ==
LOC: 4S1 05:26 → EDSTATUS 07:30 → 4S2 12:20